=== PATIENT | female | born 1980 | race Caucasian/White ===

== ENCOUNTER 2021-11-21 00:18 | Emergency (ER) | payer OTHER ==
[2021-11-21 01:29] VITALS: BP 136/58; PULSE 92; TEMP 97.7; BMI 29.2
[2021-11-21] MEDS ORDERED: ACETAMINOPHEN 500 MG TABLET (FP) PO ONE (03:40)
[2021-11-21] MEDS ORDERED: ACETAMINOPHEN 325 MG TABLET (FP) ONE (04:00)
== END 2021-11-21 06:37 | disposition home or self-care (01) ==
LOC: JER 00:18
DX: S16.1XXA Strain of muscle, fascia and tendon at neck level, initial encounter (principal); L98.8 Other specified disorders of the skin and subcutaneous tissue; V49.50XA Passenger injured in collision with unspecified motor vehicles in traffic accident, initial encounter
CPT/HCPCS: 70450-TC; 72125-TC; 84703; 99284-25